=== PATIENT | female | born 1970 | race Caucasian/White ===

== ENCOUNTER → 2020-05-05 | Outpatient (CLI) | payer BC, OTHER ==
[2020-05-05 09:42] LABS: HEMOGLOBIN 13.3 gm/dl (12.3-15.3); RED BLOOD COUNT 4.18 M/UL (4.00-5.10); WHITE BLOOD COUNT 5.3 K/UL (4.5-11.0)
[2020-05-05 10:07] LABS: BUN/CREATININE RATIO 16 (0-10)
[2020-05-06 08:14] LABS: THYROXINE (T4) 7.8 ug/dL (4.5-12.0)
== END ==
LOC: LAB 09:29
PROVIDERS: Family Medicine
DX: E03.9 Hypothyroidism, unspecified (principal)
CPT/HCPCS: 36415; 80053; 84436; 84443; 84480; 85025

== ENCOUNTER → 2020-05-22 | Outpatient (CLI) | payer BC, OTHER | LOC: MAMO 11:55 | DX: Z12.31 Encounter for screening mammogram for malignant neoplasm of breast (principal) | CPT/HCPCS: 77063; 77067 ==

== ENCOUNTER → 2020-11-25 | Outpatient (CLI) | payer BC | LOC: LAB 11:42 | DX: E03.9 Hypothyroidism, unspecified (principal); Z90.89 Acquired absence of other organs | CPT/HCPCS: 84439; 84443 ==

== ENCOUNTER → 2021-05-27 | Outpatient (CLI) | payer BC ==
[2021-05-27 06:47] LABS: HEMOGLOBIN 13.6 gm/dl (12.3-15.3); RED BLOOD COUNT 4.37 M/UL (4.00-5.10); WHITE BLOOD COUNT 5.6 K/UL (4.5-11.0)
[2021-05-27 07:19] LABS: BUN/CREATININE RATIO 18 (0-10)
[2021-05-28 10:15] LABS: VITAMIN D, 25-HYDROXY 65.1 ng/mL (30.0-100.0)
[2021-05-28 11:15] LABS: ESTRADIOL 11.4 pg/mL (.); FSH 46.8 mIU/mL (.); LUTEINIZING HORMONE(LH) 40.5 mIU/mL (.); PROGESTERONE 0.2 ng/mL (.); PROLACTIN 10.7 ng/mL (4.8-23.3)
[2021-05-29 10:15] LABS: TESTOSTERONE, SERUM 4 ng/dL (4-50)
== END ==
LOC: LAB 06:09
PROVIDERS: Nurse Practitioner Family
DX: E78.5 Hyperlipidemia, unspecified (principal); E03.9 Hypothyroidism, unspecified; R12 Heartburn; E55.9 Vitamin D deficiency, unspecified; E53.8 Deficiency of other specified B group vitamins; Z01.84 Encounter for antibody response examination
CPT/HCPCS: 80053; 80061; 81001; 82607; 82670; 83001; 83002; 84144; 84146; 84402; 84403; 84439; 84443; 85025; 87086

== ENCOUNTER → 2021-08-28 | Outpatient (CLI) | payer BC | LOC: LAB 06:24 | DX: N39.0 Urinary tract infection, site not specified (principal); E53.8 Deficiency of other specified B group vitamins; R31.9 Hematuria, unspecified; E03.9 Hypothyroidism, unspecified | CPT/HCPCS: 36415; 81001; 82607; 84439; 84443; 87086 ==